=== PATIENT | female | born 1990 | race American Indian/Alaskan Native ===

== ENCOUNTER 2019-04-13 15:59 | Emergency (ER) | payer BC ==
[2019-04-13] MEDS ORDERED: XYLOCAINE 2% INFILTRATI STA (16:24)
[2019-04-13] MEDS ORDERED: BOOSTRIX IM ONE (16:24)
--- NOTE | 2019-04-13 16:48 | Emergency Department Report ---
ED Head Trauma HPI - General Chief complaint: Laceration/Recheck/Suture Stated complaint: CUT ON R HAND Time Seen by Provider: 04/13/19 16:24 Source: patient Mode of arrival: Ambulatory Limitations: No Limitations - Related Data Previous Rx's Medication Instructions Recorded Last Taken Type Chlorhexidine Gluconate [Hibiclens] 10 ml TP BID #240 liquid 04/13/19 Unknown Rx Allergies/Adverse reactions: Allergies Allergy/AdvReac Type Severity Reaction Status Date / Time No Known Allergies Allergy Verified 04/13/19 16:06 ED Review of Systems ROS: Stated complaint: CUT ON R HAND Other details as noted in HPI ED Past Medical Hx - Medications Home Medications: Home Medications Medication Instructions Recorded Confirmed Last Taken Type Chlorhexidine Gluconate [Hibiclens] 10 ml TP BID #240 liquid 04/13/19 Unknown Rx ED Physical Exam - General Limitations: No Limitations Critical care attestation.: If time is entered above; I have spent that time in minutes in the direct care of this critically ill patient, excluding procedure time. ED Disposition Disposition: DC-01 TO HOME OR SELFCARE Condition: Stable Instructions: Suture Care (ED), Laceration (ED) Additional Instructions: Please follow sutures removed in 7-10 days. Keep clean with a bacterial soap and water. Prescriptions: Chlorhexidine Gluconate [Hibiclens] 10 ml TP BID #240 liquid Referrals: [facility] [Provider Group] - 3-5 Days
--- NOTE | 2019-04-13 17:01 | Emergency Department Report ---
ED Upper Extremity Inj HPI - General Chief Complaint: Laceration/Recheck/Suture Stated Complaint: CUT ON R HAND Time Seen by Provider: 04/13/19 16:24 Source: patient Mode of arrival: Ambulatory Limitations: No Limitations - History of Present Illness Initial Comments: 28-year-old [place] female just was department complaining of a right hand laceration. States with movement bed and the nail was sticking out, causing a laceration on her right hands.. Complaint: Injury to:: hand -: Sudden Other Extremity Injury: Hand: Right (1.5 cm laceration to the palmar aspect of the right hand.) Handedness: right Place: home Improves With: none Worsens With: none Context: laceration - Related Data Previous Rx's Medication Instructions Recorded Last Taken Type Chlorhexidine Gluconate [Hibiclens] 10 ml TP BID #240 liquid 04/13/19 Unknown Rx Allergies Allergy/AdvReac Type Severity Reaction Status Date / Time No Known Allergies Allergy Verified 04/13/19 16:06 ED Review of Systems ROS: Stated complaint: CUT ON R HAND Other details as noted in HPI Constitutional: denies: chills, fever Eyes: denies: eye pain, eye discharge, vision change ENT: denies: ear pain, throat pain Respiratory: denies: cough, shortness of breath, wheezing Cardiovascular: denies: chest pain, palpitations Endocrine: no symptoms reported Gastrointestinal: denies: abdominal pain, nausea, diarrhea Genitourinary: denies: urgency, dysuria, discharge Musculoskeletal: denies: back pain, joint swelling, arthralgia Skin: denies: rash, lesions Neurological: denies: headache, weakness, paresthesias Psychiatric: denies: anxiety, depression Hematological/Lymphatic: denies: easy bleeding, easy bruising ED Past Medical Hx - Medications Home Medications: Home Medications Medication Instructions Recorded Confirmed Last Taken Type Chlorhexidine Gluconate [Hibiclens] 10 ml TP BID #240 liquid 04/13/19 Unknown Rx ED Physical Exam - General Limitations: No Limitations General appearance: alert, in no apparent distress - Head Head exam: Present: atraumatic, normocephalic - Eye Eye exam: Present: normal appearance - ENT ENT exam: Present: mucous membranes moist - Neck Neck exam: Present: normal inspection - Respiratory Respiratory exam: Present: normal lung sounds bilaterally. Absent: respiratory distress - Cardiovascular Cardiovascular Exam: Present: regular rate, normal rhythm. Absent: systolic murmur, diastolic murmur, rubs, gallop - GI/Abdominal GI/Abdominal exam: Present: soft, normal bowel sounds. Absent: guarding, hyperactive bowel sounds, hypoactive bowel sounds, organomegaly - Extremities Exam Extremities exam: Present: normal inspection, full ROM, normal capillary refill. Absent: pedal edema, joint swelling - Back Exam Back exam: Present: normal inspection, full ROM. Absent: CVA tenderness (R), CVA tenderness (L), muscle spasm, paraspinal tenderness - Neurological Exam Neurological exam: Present: alert, oriented X3, CN II-XII intact - Psychiatric Psychiatric exam: Present: normal affect, normal mood. Absent: anxious, flat affect - Skin Skin exam: Present: warm, dry, intact, normal color. Absent: rash Critical care attestation.: If time is entered above; I have spent that time in minutes in the direct care of this critically ill patient, excluding procedure time. ED Disposition Clinical Impression: Hand laceration Disposition: DC-01 TO HOME OR SELFCARE Is pt being admited?: No Does the pt Need Aspirin: No Condition: Stable Instructions: Suture Care (ED), Laceration (ED) Additional Instructions: Please follow sutures removed in 7-10 days. Keep clean with a bacterial soap and water. Prescriptions: Chlorhexidine Gluconate [Hibiclens] 10 ml TP BID #240 liquid Referrals: [facility] [Provider Group] - 3-5 Days
== END 2019-04-13 16:58 | disposition home or self-care (01) ==
LOC: ED 15:59 → EEVIPCON 15:59 → ED 16:58
DX: S61.411A Laceration without foreign body of right hand, initial encounter (principal); X58.XXXA Exposure to other specified factors, initial encounter; Y93.89 Activity, other specified; Y92.009 Unspecified place in unspecified non-institutional (private) residence as the place of occurrence of the external cause; Y99.8 Other external cause status
CPT/HCPCS: 90471; 90715; 99281

== ENCOUNTER 2019-04-20 11:40 | Emergency (ER) | payer BC ==
[2019-04-20 11:47] VITALS: BP 135/108
--- NOTE | 2019-04-20 11:57 | Emergency Department Report ---
Suture/Staple Removal - HPI Chief Complaint: Laceration/Recheck/Suture Stated Complaint: STITCHES REMOVED Time Seen by Provider: 04/20/19 11:55 When Sutures or [place] Placed: 5-7 Days Ago Wound Location: R hand on palm ED Review of Systems ROS: Stated complaint: STITCHES REMOVED Other details as noted in HPI Comment: All other systems reviewed and negative ED Past Medical Hx - Past Medical History Previous Medical History?: No - Surgical History Past Surgical History?: No - Social History Smoking Status: Never Smoker Substance Use Type: None - Medications Home Medications: Home Medications Medication Instructions Recorded Confirmed Last Taken Type Chlorhexidine Gluconate [Hibiclens] 10 ml TP BID #240 liquid 04/13/19 Unknown Rx Suture Removal Exam - Exam General: Vital signs noted. No distress. Alert and acting appropriately. Wound: No Pathologic Erythema, No Tenderness, No Drainage, No Pus, No Wound Dehiscence Other Systems: All other systems reviewed and are unremarkable. ED Course Vital Signs 04/20/19 11:45 Temperature 97.9 F Pulse Rate 98 H Respiratory 16 Rate Blood Pressure 135/108 [Left] O2 Sat by Pulse 99 Oximetry ED Recheck MDM - Differential Diagnosis Suture/Staple Removal - Medical Decision Making sutures removed without issue Critical care attestation.: If time is entered above; I have spent that time in minutes in the direct care of this critically ill patient, excluding procedure time. ED Disposition Clinical Impression: Visit for suture removal Disposition: DC-01 TO HOME OR SELFCARE Is pt being admited?: No Does the pt Need Aspirin: No Condition: Stable Instructions: Suture Removal (ED) Time of Disposition: 11:57
== END 2019-04-20 12:17 | disposition home or self-care (01) ==
LOC: ED 11:40
DX: Z48.02 Encounter for removal of sutures (principal)